=== PATIENT | female | born 1985 | race American Indian/Alaskan Native ===

== ENCOUNTER 2019-11-26 21:27 | Emergency (ER) | payer SELFPAY ==
[2019-11-27] MEDS ORDERED: IBUPROFEN 800 MG TAB PO ONE (03:09)
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
[2019-11-27 04:38] VITALS: BP 128/83
== END 2019-11-27 04:37 | disposition home or self-care (01) ==
LOC: ED 21:27
DX: S00.33XA Contusion of nose, initial encounter (principal); S80.811A Abrasion, right lower leg, initial encounter; F12.10 Cannabis abuse, uncomplicated; Z87.891 Personal history of nicotine dependence; V89.2XXA Person injured in unspecified motor-vehicle accident, traffic, initial encounter; Y93.89 Activity, other specified; Y92.410 Unspecified street and highway as the place of occurrence of the external cause; Y99.8 Other external cause status
CPT/HCPCS: 99283

== ENCOUNTER 2021-01-29 11:50 | Emergency (ER) | payer SELFPAY ==
[2021-01-29 12:02] VITALS: BP 115/74
--- NOTE | 2021-01-29 12:16 | Emergency Department Report ---
ED General Adult HPI - General Chief complaint: Recheck/Abnormal Lab/Rx Stated complaint: FOLLOW UP Time Seen by Provider: 01/29/21 12:06 Source: patient Mode of arrival: Ambulatory Limitations: No Limitations - History of Present Illness Initial comments: Patient is 35 years old female 8 para 3, 2 miscarriage and 2 . Patient presented to the ER as a follow-up from her last visit to the ER approximately 5 days ago. Patient presented with abdominal cramping at that time and she was found to have a beta hCG of 138. Patient advised to return back to the ER for recheck of her beta hCG. Patient currently denying any abdominal cramping or vaginal bleeding. No other symptoms. - Related Data Previous Rx's Medication Instructions Recorded Last Taken Type Ibuprofen [Motrin 800 MG tab] 800 mg PO Q8HR PRN #21 tablet 11/27/19 Unknown Rx Allergies Allergy/AdvReac Type Severity Reaction Status Date / Time No Known Allergies Allergy Verified 01/23/21 16:07 ED Review of Systems ROS: Stated complaint: FOLLOW UP Other details as noted in HPI Comment: All other systems reviewed and negative Constitutional: denies: chills, fever Respiratory: denies: cough, shortness of breath, SOB with exertion Cardiovascular: denies: chest pain, palpitations Gastrointestinal: denies: abdominal pain, nausea, vomiting Musculoskeletal: denies: back pain Neurological: denies: headache, weakness, numbness, paresthesias, confusion, abnormal gait ED Past Medical Hx - Past Medical History Previous Medical History?: No - Surgical History Past Surgical History?: No - Social History Smoking Status: Former Smoker Substance Use Type: Alcohol, Marijuana - Medications Home Medications: Home Medications Medication Instructions Recorded Confirmed Last Taken Type Ibuprofen [Motrin 800 MG tab] 800 mg PO Q8HR PRN #21 tablet 11/27/19 Unknown Rx ED Physical Exam - General Limitations: No Limitations General appearance: alert, in no apparent distress - Head Head exam: Present: atraumatic, normocephalic, normal inspection - Eye Eye exam: Present: normal appearance, PERRL - ENT ENT exam: Present: normal exam, normal orophraynx, mucous membranes moist - Neck Neck exam: Present: normal inspection, full ROM. Absent: tenderness, meningismus - Respiratory Respiratory exam: Present: normal lung sounds bilaterally - Cardiovascular Cardiovascular Exam: Present: regular rate, normal rhythm, normal heart sounds - GI/Abdominal GI/Abdominal exam: Present: soft, normal bowel sounds. Absent: distended, tenderness, guarding, rebound, rigid, organomegaly, mass, bruit, pulsatile mass, hernia - Extremities Exam Extremities exam: Present: normal inspection, full ROM, normal capillary refill. Absent: tenderness, pedal edema, joint swelling, calf tenderness - Back Exam Back exam: Present: normal inspection, full ROM. Absent: CVA tenderness (R), CVA tenderness (L) - Neurological Exam Neurological exam: Present: alert, oriented X3, CN II-XII intact, normal gait, reflexes normal. Absent: motor sensory deficit - Psychiatric Psychiatric exam: Present: normal mood - Skin Skin exam: Present: warm, intact, normal color ED Course Vital Signs 01/29/21 11:54 Temperature 99.5 F Pulse Rate 69 Respiratory 16 Rate Blood Pressure 115/74 O2 Sat by Pulse 100 Oximetry ED Medical Decision Making - Medical Decision Making Patient is 35 years old female 8 para 3, 2 miscarriage and 2 . Patient presented to the ER as a follow-up from her last visit to the ER approximately 5 days ago. Patient presented with abdominal cramping at that time and she was found to have a beta hCG of 138. Patient advised to return back to the ER for recheck of her beta hCG. Patient currently denying any abdominal cramping or vaginal bleeding. No other symptoms. Beta-hCG today is 438. Patient still denying any symptoms. Patient advised to follow-up with her OB doctor in the next 2 to 3 days and to return to the ER if she develop any new symptoms. Critical care attestation.: If time is entered above; I have spent that time in minutes in the direct care of this critically ill patient, excluding procedure time. ED Disposition Clinical Impression: Disposition: 01 HOME / SELF CARE / HOMELESS Is pt being admited?: No Condition: Stable Instructions: First Trimester of , [id number] Additional Instructions: Your beta hCG today is 438. 5 days ago it was 138. Referrals: PRIMARY CARE, [Referring] - 3-5 Days
== END 2021-01-29 14:38 | disposition home or self-care (01) ==
LOC: ED 11:50
DX: Z00.8 Encounter for other general examination (principal)
CPT/HCPCS: 36415; 84702; 99283

== ENCOUNTER 2021-02-02 09:20 | Emergency (ER) | payer SELFPAY ==
[2021-02-02 10:51] LABS: Basophils % (Auto) 0.9 % (0.0-1.8); Eosinophils # (Auto) 0.1 K/mm3 (0.0-0.4); Eosinophils % (Auto) 2.9 % (0.0-4.3); Hematocrit 36.9 % (30.3-42.9); Hemoglobin 12.6 gm/dl (10.1-14.3); Lymphocytes # (Auto) 1.7 K/mm3 (1.2-5.4); Lymphocytes % (Auto) 44.1 % (13.4-35.0); Mean Corpuscular HGB Conc 34 % (30-34); Mean Corpuscular Volume 93 fl (79-97); Monocytes # (Auto) 0.3 K/mm3 (0.0-0.8); Platelet Count 254 K/mm3 (140-440); Red Blood Count 3.99 M/mm3 (3.65-5.03); Red Cell Distribution Width 13.1 % (13.2-15.2)
[2021-02-02 11:14] LABS: Alanine Aminotransferase 11 units/L (7-56); Albumin 3.9 g/dL (3.9-5); Blood Urea Nitrogen 10 mg/dL (7-17); Calcium 8.8 mg/dL (8.4-10.2); Hemolysis Index 10
[2021-02-02 11:15] LABS: BUN/Creatinine Ratio 14
--- NOTE | 2021-02-02 11:37 | Ultrasound Report ---
OB Ultrasound HISTORY: , spotting. TECHNIQUE: Grayscale and color imaging performed. COMPARISON: OB ultrasound from 01/23/2021 FINDINGS: Uterus measures 10.9 x 4.7 x 6.1 cm with endometrial echocomplex measuring 12 mm. No intrau terine gestation is identified on today's exam. The ovaries are both normal in size with a 2.5 cm cyst on the right which is simple in appearance and likely functional. Trace pelvic free fluid noted. IMPRESSION: 1. No intrauterine gestation identified. Correlate with beta hCG level and if needed follow-up pelvic ultrasound. 2. Simple right ovarian cyst again noted. Signer Name: Richi Fernandez MD Signed: 02/02/2021 11:33 AM Workstation Name: [id number]
--- NOTE | 2021-02-02 12:23 | Emergency Department Report ---
ED HPI - General Chief complaint: Vaginal Bleeding Stated complaint: VAGINAL BLEEDING, Time Seen by Provider: 02/02/21 10:17 Source: patient Mode of arrival: Ambulatory Limitations: No Limitations - History of Present Illness Initial comments: Patient is a 35-year-old female presents emergency room complaints of vaginal spotting that occurred last night. She states that she had 1 small blood clot. She denies any heavy bleeding she states yesterday she was having low back pain but has no pain currently she denies any abdominal pain. States her last menstrual cycle was 12/15/2020. She denies any fever, nausea, vomiting, diarrhea , dysuria, abnormal vaginal discharge. She states her MANAGER UI is in a splint but she has not seen them yet. No past medical history. No allergies to medications. /P: 3/A: 4 - Related Data Previous Rx's Medication Instructions Recorded Last Taken Type Ibuprofen [Motrin 800 MG tab] 800 mg PO Q8HR PRN #21 tablet 11/27/19 Unknown Rx Allergies Allergy/AdvReac Type Severity Reaction Status Date / Time No Known Allergies Allergy Verified 01/23/21 16:07 ED Review of Systems ROS: Stated complaint: VAGINAL BLEEDING, Other details as noted in HPI Comment: All other systems reviewed and negative ED Past Medical Hx - Past Medical History Previous Medical History?: No - Surgical History Past Surgical History?: No - Social History Smoking Status: Former Smoker Substance Use Type: Alcohol, Marijuana - Medications Home Medications: Home Medications Medication Instructions Recorded Confirmed Last Taken Type Ibuprofen [Motrin 800 MG tab] 800 mg PO Q8HR PRN #21 tablet 11/27/19 Unknown Rx ED Physical Exam - General Limitations: No Limitations General appearance: alert, in no apparent distress - Head Head exam: Present: atraumatic, normocephalic - Eye Eye exam: Present: normal appearance - ENT ENT exam: Present: mucous membranes moist - Respiratory Respiratory exam: Present: normal lung sounds bilaterally. Absent: respiratory distress, wheezes, rales, rhonchi, stridor, chest wall tenderness, accessory muscle use, decreased breath sounds, prolonged expiratory - Cardiovascular Cardiovascular Exam: Present: regular rate, normal rhythm, normal heart sounds. Absent: systolic murmur, diastolic murmur, rubs, gallop - GI/Abdominal GI/Abdominal exam: Present: soft, normal bowel sounds. Absent: distended, tenderness, guarding, rebound, rigid - Neurological Exam Neurological exam: Present: alert, oriented X3 - Psychiatric Psychiatric exam: Present: normal affect, normal mood - Skin Skin exam: Present: warm, dry, intact ED Course Vital Signs 02/02/21 02/02/21 10:22 12:58 Temperature 98.4 F 98.6 F Pulse Rate 72 80 Respiratory 16 12 Rate Blood Pressure 94/57 106/62 Blood Pressure 106/62 [Right] O2 Sat by Pulse 100 99 Oximetry ED Medical Decision Making - Lab Data Result diagrams: 02/02/21 10:38 02/02/21 10:38 Lab Results 02/02/21 02/02/21 02/02/21 Range/Units 10:38 10:38 10:38 WBC 3.9 L (4.5-11.0) K/mm3 RBC 3.99 (3.65-5.03) M/mm3 Hgb 12.6 (10.1-14.3) gm/dl Hct 36.9 (30.3-42.9) % MCV 93 (79-97) fl MCH 32 (28-32) pg MCHC 34 (30-34) % RDW 13.1 L (13.2-15.2) % Plt Count 254 (140-440) K/mm3 Lymph % (Auto) 44.1 H (13.4-35.0) % Arroyo % (Auto) 8.0 H (0.0-7.3) % Eos % (Auto) 2.9 (0.0-4.3) % Baso % (Auto) 0.9 (0.0-1.8) % Lymph # (Auto) 1.7 (1.2-5.4) K/mm3 Arroyo # (Auto) 0.3 (0.0-0.8) K/mm3 Eos # (Auto) 0.1 (0.0-0.4) K/mm3 Baso # (Auto) 0.0 (0.0-0.1) K/mm3 Seg Neutrophils % 44.1 (40.0-70.0) % Seg Neutrophils # 1.7 L (1.8-7.7) K/mm3 Sodium 138 (137-145) mmol/L Potassium 3.9 (3.6-5.0) mmol/L Chloride 105.0 (98-107) mmol/L Carbon Dioxide 22 (22-30) mmol/L Anion Gap 15 mmol/L BUN 10 (7-17) mg/dL Creatinine 0.7 (0.6-1.2) mg/dL Estimated GFR > 60 ml/min BUN/Creatinine Ratio 14 % Glucose 78 (65-100) mg/dL Calcium 8.8 (8.4-10.2) mg/dL Total Bilirubin 0.70 (0.1-1.2) mg/dL AST 15 (5-40) units/L ALT 11 (7-56) units/L Alkaline Phosphatase 33 L (35-129) units/L Total Protein 7.1 (6.3-8.2) g/dL Albumin 3.9 (3.9-5) g/dL Albumin/Globulin Ratio 1.2 % HCG, Quant 707.2 H (0-4) mIU/mL Blood Type 02/02/21 Range/Units 10:38 WBC (4.5-11.0) K/mm3 RBC (3.65-5.03) M/mm3 Hgb (10.1-14.3) gm/dl Hct (30.3-42.9) % MCV (79-97) fl MCH (28-32) pg MCHC (30-34) % RDW (13.2-15.2) % Plt Count (140-440) K/mm3 Lymph % (Auto) (13.4-35.0) % Arroyo % (Auto) (0.0-7.3) % Eos % (Auto) (0.0-4.3) % Baso % (Auto) (0.0-1.8) % Lymph # (Auto) (1.2-5.4) K/mm3 Arroyo # (Auto) (0.0-0.8) K/mm3 Eos # (Auto) (0.0-0.4) K/mm3 Baso # (Auto) (0.0-0.1) K/mm3 Seg Neutrophils % (40.0-70.0) % Seg Neutrophils # (1.8-7.7) K/mm3 Sodium (137-145) mmol/L Potassium (3.6-5.0) mmol/L Chloride (98-107) mmol/L Carbon Dioxide (22-30) mmol/L Anion Gap mmol/L BUN (7-17) mg/dL Creatinine (0.6-1.2) mg/dL Estimated GFR ml/min BUN/Creatinine Ratio % Glucose (65-100) mg/dL Calcium (8.4-10.2) mg/dL Total Bilirubin (0.1-1.2) mg/dL AST (5-40) units/L ALT (7-56) units/L Alkaline Phosphatase (35-129) units/L Total Protein (6.3-8.2) g/dL Albumin (3.9-5) g/dL Albumin/Globulin Ratio % HCG, Quant (0-4) mIU/mL Blood Type O POSITIVE Vital Signs 02/02/21 02/02/21 10:22 12:58 Temperature 98.4 F 98.6 F Pulse Rate 72 80 Respiratory 16 12 Rate Blood Pressure 94/57 106/62 Blood Pressure 106/62 [Right] O2 Sat by Pulse 100 99 Oximetry - Radiology Data Radiology results: report reviewed Ordering Physician: BRANDEE HDEZ Date of Service: 02/02/21 Procedure(s): US OB transvaginal Accession Number(s): [id number] cc: BRANDEE HDEZ OB Ultrasound HISTORY: , spotting. TECHNIQUE: Grayscale and color imaging performed. COMPARISON: OB ultrasound from 01/23/2021 FINDINGS: Uterus measures 10.9 x 4.7 x 6.1 cm with endometrial echocomplex measuring 12 mm. No intrauterine gestation is identified on today's exam. The ovaries are both normal in size with a 2.5 cm cyst on the right which is simple in appearance and likely functional. Trace pelvic free fluid noted. IMPRESSION: 1. No intrauterine gestation identified. Correlate with beta hCG level and if needed follow-up pelvic ultrasound. 2. Simple right ovarian cyst again noted. Signer Name: Richi Fernandez MD Signed: 02/02/2021 11:33 AM Workstation Name: [id number] Transcribed By: SIENNA Dictated By: Richi Fernandez MD Electronically Authenticated By: Richi Fernandez MD Signed Date/Time: 02/02/21 1133 DD/ 113 TD/TT: - Medical Decision Making Patient is a 35-year-old female presents emergency room complaints of vaginal spotting that occurred last night. She states that she had 1 small blood clot. She denies any heavy bleeding she states yesterday she was having low back pain but has no pain currently she denies any abdominal pain. States her last menstrual cycle was 12/15/2020. She denies any fever, nausea, vomiting, diarrhea, dysuria, abnormal vaginal discharge. She states her MANAGER UI is in a splint but she has not seen them yet. No past medical history. No allergies to medications. /P: 3/A: 4. vss. No abdominal tenderness on exam, no guarding, no rebound, no rigidity, normal bowel sounds, no peritoneal signs. Labs are stable. hCG quant has increased from the 400s to 707. Patient is Rh+. OB ultrasound: 1. No intrauterine gestation identified. Correlate with beta hCG level and if needed follow-up pelvic ultrasound. 2. Simple right ovarian cyst again noted. Findings could be consistent with early IUP versus ectopic versus threatened miscarriage. Stressed with patient the importance of MANAGER UI follow-up. Advised patient Please take a vitamin [id number]. Increase your fluid intake. May take Tylenol for any pain. Please practice pelvic rest. Follow-up with MANAGER UI. Return to emergency room for any new or worsening symptoms. Critical care attestation.: If time is entered above; I have spent that time in minutes in the direct care of this critically ill patient, excluding procedure time. ED Disposition Clinical Impression: Vaginal spotting, Elevated serum hCG Ovarian cyst Qualifiers: Laterality: right Qualified Code(s): N83.201 - Unspecified ovarian cyst, right side Disposition: HOME / SELF CARE / HOMELESS Is pt being admited?: No Does the pt Need Aspirin: No Condition: Stable Additional Instructions: Please take a vitamin [id number]. Increase your fluid intake. May take Tylenol for any pain. Please practice pelvic rest. Follow-up with MANAGER UI. Return to emergency room for any new or worsening symptoms. Referrals: your, olive grader [Other] - 3-5 Days Time of Disposition: 12:42 Print Language: TRINIDADIAN
[2021-02-02 13:03] VITALS: BP 106/62
== END 2021-02-02 13:15 | disposition home or self-care (01) ==
LOC: ED 09:20
DX: O26.851 Spotting complicating pregnancy, first trimester (principal); O26.891 Other specified pregnancy related conditions, first trimester; N83.201 Unspecified ovarian cyst, right side; O02.81 Inappropriate change in quantitative human chorionic gonadotropin (hCG) in early pregnancy; F12.90 Cannabis use, unspecified, uncomplicated; F17.200 Nicotine dependence, unspecified, uncomplicated; Z72.89 Other problems related to lifestyle; Z79.899 Other long term (current) drug therapy; Z3A.00 Weeks of gestation of pregnancy not specified
CPT/HCPCS: 36415; 76801; 76817; 80053; 84702; 85025; 86900; 86901; 99284

== ENCOUNTER 2021-10-24 01:00 | Outpatient (CLI) | payer MEDICAID ==
[2021-10-24 01:28] VITALS: BP 110/67
--- NOTE | 2021-10-24 03:51 | Ultrasound Report ---
US OB follow up INDICATION / CLINICAL INFORMATION: dennis, efw COMPARISON: None available. TECHNIQUE: Using a transcutaneous probe, multiple grayscale, color Doppler, and spectral Doppler imag es of the uterus and fetus were captured and stored. FINDINGS: Single cephalic fetus heart rate 129. Amniotic fluid index is within normal limits measuring 9.0 cm. Biparietal Diameter = 8.7 cm = 35, 1 weeks, days Head Circumference = 32.0 cm = 36, 0 weeks, days Abdominal Circumference = 30.5 cm = 34, 3 weeks, days Femur Length = 6.9 cm = 35, 1 weeks, days Average Ultrasound Age (AUA) = 35, 1 weeks, days. EDC 11/27/2021. Clinical history gestational age based on LMP of 02/16/2021 is 35 weeks 5 days. Estimated weight = 2537 g. Growth percentile 27%.. IMPRESSION: 1. Single living intrauterine fetus with normal amniotic fluid index and estimated weight of 25 37 g. Signer Name: Espinoza Reza II, MD Signed: 10/24/2021 3:47 AM Workstation Name: [id number]
== END 2021-10-24 03:29 | disposition home or self-care (01) ==
LOC: TRG 01:00 → APU 01:02 → TRG 03:29
PROVIDERS: ATTEND Obstetrics & Gynecology Gynecology
DX: O46.8X3 Other antepartum hemorrhage, third trimester (principal); Z3A.35 35 weeks gestation of pregnancy; O42.913 Preterm premature rupture of membranes, unspecified as to length of time between rupture and onset of labor, third trimester
CPT/HCPCS: 76816